=== PATIENT | female | born 1995 | race Caucasian/White ===

== ENCOUNTER → 2016-12-18 | Outpatient (CLI) | payer OTHER ==
[2016-12-18 11:10] LABS: CH 30.1; CHCM 33.9; HCT 30.7 % (34.0-46.0); HDW 3.29; HGB 10.4 gm/dL (11.4-16.0); MCH 30.1 pg (25.0-35.0); MCHC 33.8 g/dL (31.0-37.0); MCV 89.1 fL (80.0-100.0); Mean Platelet Volume 8.4; RBC 3.45 m/uL (3.80-5.40); RDW 12.8 % (11.5-15.5); WBC 9.1 k/uL (3.8-10.6)
== END | disposition home or self-care (01) ==
LOC: LABWHC1 09:20
PROVIDERS: ATTEND Obstetrics & Gynecology
DX: Z34.02 Encounter for supervision of normal first pregnancy, second trimester (principal)
CPT/HCPCS: 36415; 82950; 85027

== ENCOUNTER → 2017-02-08 | Outpatient (CLI) | payer OTHER ==
--- NOTE | 2017-02-08 22:00 | US ---
EXAMINATION TYPE: US OB anatomy transabd DATE OF EXAM: 02/08/2017 3:03 PM COMPARISON: Us on PACS HISTORY: 22-year-old female LGA: TECHNIQUE: Transabdominal (TA) FINDINGS: EXAM MEASUREMENTS: GESTATIONAL AGE / DATING Physician Established: (35 weeks/1 day) EDC: 03/14/2017 Dates by LMP: (unknown) Dates by First Scan: (36 weeks/ 3 days) EDC: 03/05/2017 Dates by Current Scan for: (39 weeks/0 days) EDC: 02/15/2017 SURVEY IUP: Single PLACENTA: Anterior placenta with possible succenturiate lobe fundally on images #22 and 23. PREVIA: No previa JARETH: 16.6 cm Normal CERVICAL LENGTH (transabdominal: norm > 3.0cm): 3.6 cm BIOMETRY PRESENTATION: Breech LIE: Longitudinal BPD: 9.9 cm 40 weeks / 5 days HC: 35.0 cm 40 weeks / 6 days AC: 33.3 cm 37 weeks / 2 days FL: 7.2 cm 37 weeks / 0 days ESTIMATED WEIGHT IN GRAMS: 3342 grams ESTIMATED WEIGHT IN LBS/OZS: 7 lbs. 6 oz. WEIGHT PERCENTAGE BASED ON ESTABLISHED DATE: 98 % (versus 94% on 10/19/2016) HC/AC: 1.05 normal FL/AC: 22% normal HEART RATE: 133 bpm RHYTHM: Normal ANATOMY SEEN (within normal limits): Lateral Vent (< 1 cm) 0.7 cm Choroid Plexus (bilateral) Midline Falx Four Chamber Heart Stomach Situs Nose / Lips Diaphragm Kidneys (bilateral) Bladder Three Vessel Cord ANATOMY NOT SEEN or SUBOPTIMALLY VISUALIZED: due to bone shadowing and crowding Cavus Septi Pellucidi Longitudinal Spine: S Spine not seen Transverse Spine: S Spine not seen Cisterna Magna (< 1.1 cm) Cerebellum (varies with age) Arms (bilateral) Legs (bilateral) Outflow tracts: LVOT/RVOT Cord Insert TECHNOLOGIST NOTES: Single, live, IUP,(39 weeks/0 days), EDC: 02/15/2017; [id number]. Tech called Dr Tere flannery's Office to report patient is measuring 18 days sooner than EDC, although gestation in 3rd trim eladio is allowed + or - 21 days. JJ IMPRESSION: 1. Single live intrauterine with established gestational age of 35 weeks 1 day. Current ult rasound biometry (39 weeks 0 days) is nearly 4 weeks greater than establish dates and nearly 2 weeks 4 days greater than prior dating scan. This places the child at the 98th percentile for weight versus 94% on prior exam. Continued follow-up as indicated. 2. Possible succenturiate lobe of the placenta. 3. The nose/lips are visualized and appear normal.
== END | disposition home or self-care (01) ==
LOC: RADUSWWP 14:08
PROVIDERS: ATTEND Obstetrics & Gynecology
DX: O36.63X0 Maternal care for excessive fetal growth, third trimester, not applicable or unspecified (principal); Z3A.35 35 weeks gestation of pregnancy
CPT/HCPCS: 76811

== ENCOUNTER 2017-03-14 12:23 | Inpatient (IN) | payer OTHER ==
[2017-03-14] MEDS ORDERED: LACTATED RINGERS 1,000 ML IV ONE (12:47)
[2017-03-14] MEDS ORDERED: CITRIC ACID-SODIUM CITRATE 15 ML CUP PO ONE (12:47)
[2017-03-14] MEDS ORDERED: ceFAZolin 2 GM in SODIUM CHLORIDE 0.9% 100 ML IVPB STA (12:49)
[2017-03-14] MEDS ORDERED: LACTATED RINGERS 1,000 ML IV SCH (13:00)
--- NOTE | 2017-03-14 13:32 | P.HPOB ---
History of Present Illness H&P Date: 03/14/17 Chief Complaint: Leaking of fluid and breech This patient is a pleasant 22-year-old 1 para 0 female estimated date of confinement 03/14/2017 estimated gestational age 40 and 0 weeks gestation who presents to labor and delivery with complaints of gush of fluid at 4 AM this morning. Patient's care is per Dr. Winter appears to be complicated by persistent breech presentation. Patient was scheduled for a primary on Wednesday however is now grossly ruptured. Patient did have a positive group B strep culture. Review of Systems Constitutional: Denies chills, Denies fever Eyes: denies blurred vision, denies pain Ears, nose, mouth and throat: Denies headache, Denies sore throat Cardiovascular: Denies chest pain, Denies shortness of breath Respiratory: Denies cough Gastrointestinal: Reports heartburn Genitourinary: Reports Menstruation: Reports amenorrhea Past Medical History Past Medical History: No Reported History History of Any Multi-Drug Resistant Organisms: None Reported Past Surgical History: No Surgical Hx Reported Past Anesthesia/Blood Transfusion Reactions: No Reported Reaction Past Psychological History: No Psychological Hx Reported Smoking Status: Never smoker Past Alcohol Use History: None Reported Past Drug Use History: None Reported - Past Family History Mother Family Medical History: No Reported History Medications and Allergies Home Medications Medication Instructions Recorded Confirmed Type Pnv with Ca,No.72/Iron/FA 1 tab PO DAILY 03/08/17 03/08/17 History [ Plus Tablet] Allergies Allergy/AdvReac Type Severity Reaction Status Date / Time No Known Allergies Allergy Verified 03/08/17 12:01 Exam - Vital Signs Vital signs: Vital Signs Temp Pulse Resp BP Pulse Ox 03/14/17 12:30 97.7 F 97 14 148/89 98 Intake and Output 03/13/17 03/14/17 03/14/17 22:59 06:59 14:59 Other: Weight 86.636 kg Patient Weight 03/15/17 06:59 Weight 86.636 kg - OBG Physical Exam Abdomen: bowel sounds normal, no diffuse tenderness, no bruit present, no guarding noted, no hepatomegaly, no splenomegaly, no mass Vulva: both: normal Vagina: normal moisture, no discharge Cervix: no lesion (Cervix is 1 cm dilated and she is grossly ruptured), no discharge Uterus: enlarged (Fundal height is consistent with a term .) Results blood work shows she is A positive, rubella nonimmune, hepatitis B negative, RPR was non-reactive, group B strep was negative, HIV was nonreactive , Glucola was normal, ultrasounds have been normal with the exception of persistent breech presentation. Assessment and Plan (1) Third trimester Narrative/Plan: This is a pleasant 22-year-old 1 para 0 female 40-0/7 weeks gestation with persistent breech presentation, premature rupture membranes, and history of positive group B strep culture. Plan is antibiotic prophylaxis, and proceed with delivery by section at this time. I did discuss this procedure with the patient and risks including risks of infection, bleeding, possible injury to bowel, bladder, vessels, and/or other organs. All the patient's questions are answered and a written consent is obtained. Status: Acute (2) Premature rupture of membranes Status: Acute (3) Breech presentation Status: Acute (4) Group B streptococcal carriage complicating Status: Acute
[2017-03-14 13:40] LABS: WBC 9.7 k/uL (3.8-10.6); WBC (Perox) 10.55
[2017-03-14 13:41] LABS: CH 26.6; CHCM 32.9; HCT 29.5 % (34.0-46.0); HDW 3.42; HGB 9.6 gm/dL (11.4-16.0); MCH 26.5 pg (25.0-35.0); MCHC 32.7 g/dL (31.0-37.0); MCV 81.1 fL (80.0-100.0); RBC 3.64 m/uL (3.80-5.40); RDW 14.8 % (11.5-15.5)
[2017-03-14 13:42] LABS: Hypochromasia Slight; Mean Platelet Volume 8.9; Poikilocytosis Slight
[2017-03-14 13:43] LABS: Basophils % (A) 0 %; Eosinophils % (A) 0 %; Luc % (Auto) 2; Lymphocytes # (A) 1.9 k/uL (1.0-4.8); Lymphocytes % (A) 19 %; Monocytes % (A) 6 %; Neutrophils # (A) 7.1 k/uL (1.3-7.7); Neutrophils % (A) 73 %
[2017-03-14 13:44] LABS: Monocytes # (A) 0.5 k/uL (0-1.0)
[2017-03-14] MEDS ORDERED: ONDANSETRON 4 MG/2 ML VIAL ONE (14:00)
[2017-03-14] MEDS ORDERED: ePHEDrine 50 MG/ML 1 ML AMP ONE (14:00)
[2017-03-14] MEDS ORDERED: LACTATED RINGERS 1,000 ML BAG IV ONE (14:00)
[2017-03-14] MEDS ORDERED: KETOROLAC 30 MG/ML 1 ML VIAL ONE (14:00)
[2017-03-14] MEDS ORDERED: MORPHINE SULFATE (PF) 0.3 MG/0.3 ML SYR ONE (14:00)
[2017-03-14] MEDS ORDERED: NALBUPHINE 10 MG/ML AMPUL ONE (14:00)
[2017-03-14] MEDS ORDERED: OXYTOCIN 10 UNIT/ML 1 ML VIAL IM ONE (14:00)
[2017-03-14] MEDS ORDERED: MORPHINE SULFATE 4 MG/ML SYRINGE IVP PRN ×2 (14:23→16:41)
[2017-03-14] MEDS ORDERED: ONDANSETRON 4 MG/2 ML VIAL IVP PRN ×2 (14:23→14:45)
[2017-03-14] MEDS ORDERED: diphenhydrAMINE 50 MG/ML 1 ML VIAL IVP PRN ×2 (14:23→14:45)
[2017-03-14] MEDS ORDERED: NALOXONE 0.4 MG/ML 1 ML VIAL IV PRN ×2 (14:23→14:45)
[2017-03-14] MEDS ORDERED: MEASLES-MUMPS-RUBELLA VACC/PF 12,500 UNIT/0.5 ML VIAL SQ ONE (14:45)
[2017-03-14] MEDS ORDERED: Acetaminophen-Codeine 300-30mg TAB PO PRN (14:45)
[2017-03-14] MEDS ORDERED: METOCLOPRAMIDE 5 MG/ML 2 ML VIAL IVP PRN (14:45)
[2017-03-14] MEDS ORDERED: SIMETHICONE 80 MG CHEWABLE PO PRN (14:45)
[2017-03-14] MEDS ORDERED: ZOLPIDEM 5 MG TAB PO PRN (14:45)
[2017-03-14] MEDS ORDERED: LANOLIN CREAM 5 GM TUBE TOPICAL PRN (14:45)
[2017-03-14] MEDS ORDERED: ACETAMINOPHEN TAB 325 MG TAB PO PRN (14:45)
[2017-03-14] MEDS ORDERED: diphenhydrAMINE 25 MG CAP PO PRN (14:45)
[2017-03-14] MEDS ORDERED: OXYTOCIN 30 UNITS/500 ML NS 30 UNIT in SALINE 1 500ML.BAG IV SCH (14:45)
--- NOTE | 2017-03-14 14:47 | P.OP ---
Date of Procedure: 03/14/17 Preoperative Diagnosis: #1: 40-0/7 weeks . #2: Premature rupture membranes. #3: Persistent breech presentation. #4: Positive group B strep culture Postoperative Diagnosis: Same Procedure(s) Performed: Primary low transverse section Anesthesia: spinal Surgeon: Pratik Lucas Design Intern #1: Adriana Ross Estimated Blood Loss (ml): 800 Pathology: other Condition: stable (Placenta) Disposition: floor Indications for Procedure: Please see dictated H&P for intimate details of this patient's admission. Brief summary this is a pleasant 22-year-old 1 para 0 female 40-0/7 weeks gestation who is admitted to labor and delivery with complaints of gush of fluid at 4 AM this morning. Patient presented to labor and delivery around noon today. Ultrasound confirms persistent breech. Patient understands is best to proceed with section for delivery at this time. Patient does understand the surgery and risks including risks of infection, bleeding, possible injury bowel, bladder, vessels, and other organs. Patient understands risk of DVT and pulmonary embolism. All the patient's questions are answered and a written consent is obtained. Operative Findings: This is a vigorous viable male infant Apgars 9 and 9 delivery time is 1416 hrs. was sacrum anterior vishnu breech presentation. Description of Procedure: Patient has a Fish catheter placed to straight drain. She is subsequently taken to the operating room where she sat up and spinal anesthetic is administered without incident. With an adequate level of anesthesia she has abdominal prep and drape. Scalpels and taken Pfannenstiel skin incision is then made. A second scalpel is taken down the fascia the fascia scored with scalpel. Fascial incision is extended bilaterally using the Castanon scissors. Fascia is dissected off the rectus muscles sharply. Rectus muscles are the peritoneum was identified and entered sharply. Peritoneal incision extended superior and inferior without difficulty. Bladder blade is placed at this time in the bladder peritoneum was taken sharply off the lower uterine segment. Scalpels and taken a low transverse uterine incision is made. Using a hemostat I enter the uterine cavity bluntly. There is a scant amount of clear fluid. This incision extended bluntly. Infant is found to be in the vishnu breech sacrum anterior presentation. Using the usual breech maneuvers this is delivered. This is a vigorous viable male Apgars are 9 and 9 delivery time is 1416 hrs. After delivery of the infant the umbilical cord is doubly clamped and cut. It appears to be trivascular. The placenta is then manually extracted intact. Uterus is then externalized and uterine incision demarcated with Ramirez clamps. Incision is then closed using 0 Vicryl running locked fashion 2 layers. Excellent hemostasis is noted. With this done the bladder peritoneum is closed using a 3-0 Vicryl in a running fashion. Excess fluid is removed from the abdomen and pelvis. The uterus tubes and ovaries appear normal for term gestation. Uterus placed back into the abdomen. Parietal peritoneum was then identified and closed using 0 Vicryl running fashion. Rectus muscles reapproximated in 0 Vicryl interrupted fashion. Fascia is then closed using 0 PDS. Fascial incision is intact and hemostatic. Subcutaneous tissues and closed using a 3-0 Vicryl. Skin is and closed using oswaldo. All counts are correct 3. There are no complications. Infant and mother are taken together birthing suite in satisfactory condition.
[2017-03-14 14:50] VITALS: BMI 34.9
--- NOTE | 2017-03-14 14:52 | P.MSEPDOC ---
Presenting Problems - Arrival Data Date of Arrival on Unit: 03/14/17 Time of Arrival on Unit: 12:20 Mode of Transport: Ambulatory - Complaint OB-Reason for Admission/Chief Complaint: Rule Out SROM Comment: SROM 0400, clear Medical History - Information : 1 Para: 0 Term: 0 : 0 Abortions: Spontaneous or Elective: 0 Number of Living Children: 0 - Gestational Age Expected Date of Delivery: 03/14/17 Gestational Age by TIARA (wks/days): 40 Weeks and 0 Days - History Complications: Breech Review of Systems - Review of Systems Constitutional: No problems Breast: No problems ENT: No problems Cardiovascular: No problems Respiratory: No problems Gastrointestinal: No problems Genitourinary: No problems Musculoskeletal: No problems Neurological: No problems Skin: No problems Vital Signs - Temperature Temperature: 97.7 F Temperature Source: Temporal Artery Scan - Pulse Right Sitting Brachial Pulse Rate: 97 Pulse Assessment Method: Automatic Cuff - Respirations Respiratory Rate: 14 Oxygen Delivery Method: Room Air O2 Sat by Pulse Oximetry: 98 - Blood Pressure Right Arm Sitting Blood Pressure: 148/89 Blood Pressure Mean: 108 Blood Pressure Source: Automatic Cuff Medical Screen Scoring (Pre) - Cervical Exam Dilation: 1-3 cm = 1 Membranes: Ruptured = 3 - Uterine Contractions Frequency: N/A Duration: N/A Intensity: N/A - Maternal Vital Signs Maternal Temperature: N/A Maternal Blood Pressure: N/A Signs of Preeclampsia: N/A Maternal Respirations: N/A - Maternal Trauma Maternal Trauma: N/A - Assessment Baseline FHR: 140 Heart Rate - NICHD Category: Category I (Normal) = 0 NST: Reactive Position: N/A Station: N/A - Total Score Total Score (Pre): 4 - Level of Risk Level of Risk: Low (0-5) Physician Notification (Post) - Physician Notified Physician Notified Date: 03/14/17 Physician Notified Time: 12:45 Physician/Practitioner Notified:: Dr Lucas Spoke With: Dr Lucas New Order Received: Yes - Notification Comment Comment: admit & prep for section. Disposition - Disposition OB Disposition: Admit, LDRP Suite Discharge Date: 03/14/17 Discharge Time: 12:59 I agree with the RN Medical Screening Exam: Yes Risk & Benefit of care provided described in d/c instruction: Yes Diagnosis: MATERNAL CARE FOR BREECH PRESENTATION, FETUS 1
[2017-03-14] MEDS: LACTATED RINGERS 1,000 ML IV SCH ×2 (17:25→23:00)
[2017-03-14] MEDS: ceFAZolin 2 GM in SODIUM CHLORIDE 0.9% 100 ML IVPB SCH (20:30)
[2017-03-14] MEDS: KETOROLAC 30 MG/ML 1 ML VIAL IVP PRN (20:30)
[2017-03-14] MEDS: SENNOSIDES-DOCUSATE SODIUM 1 EACH TAB PO SCH (20:31)
[2017-03-15] MEDS: ceFAZolin 2 GM in SODIUM CHLORIDE 0.9% 100 ML IVPB SCH (03:59)
[2017-03-15] MEDS: LACTATED RINGERS 1,000 ML IV SCH (04:00)
[2017-03-15] MEDS: KETOROLAC 30 MG/ML 1 ML VIAL IVP PRN (05:19)
[2017-03-15 09:29] LABS: Basophils % (A) 0 %; CHCM 31.5; Eosinophils % (A) 0 %; HCT 26.9 % (34.0-46.0); HDW 3.17; HGB 8.3 gm/dL (11.4-16.0); Hypochromasia Moderate; Luc # (Auto) 0.14; Luc % (Auto) 1; Lymphocytes # (A) 1.9 k/uL (1.0-4.8); Lymphocytes % (A) 17 %; MCH 25.5 pg (25.0-35.0); MCHC 30.8 g/dL (31.0-37.0); MCV 82.9 fL (80.0-100.0); Monocytes # (A) 0.6 k/uL (0-1.0); Monocytes % (A) 5 %; Neutrophils # (A) 8.4 k/uL (1.3-7.7); Neutrophils % (A) 76 %; RBC 3.24 m/uL (3.80-5.40); RDW 15.3 % (11.5-15.5); WBC (Perox) 11.49
[2017-03-15] MEDS: SENNOSIDES-DOCUSATE SODIUM 1 EACH TAB PO SCH ×2 (09:35→23:32)
--- NOTE | 2017-03-15 13:08 | P.PN ---
Progress Note - Text Date: 03/15/2017 Time: 07:07 The patient is status post section Vital signs stable VAS: 0-10 Patient has no complaints of pain. The patient incurred some minimal itching yesterday, this itching is now subsiding. Pain meds to be managed by service.
[2017-03-15] MEDS: Acetaminophen-Codeine 300-30mg TAB PO PRN (16:19)
[2017-03-15] MEDS: IBUPROFEN 600 MG TAB PO PRN (20:20)
[2017-03-16] MEDS: Acetaminophen-Codeine 300-30mg TAB PO PRN (00:30)
[2017-03-16 00:52] VITALS: RESP 16
[2017-03-16] MEDS: IBUPROFEN 600 MG TAB PO PRN (07:41)
--- NOTE | 2017-03-16 08:12 | P.PNOBGPC ---
Subjective - Subjective Principal diagnosis: Status post primary low transverse postoperative day #1 Interval history: Patient seen and examined. Denies nausea, vomiting, fever, chills, chest pain, shortness of breath or calf pain. Patient reports: Reports appetite normal, Reports voiding normally, Reports pain well controlled, Reports ambulating normally : doing well Objective - Vital Signs Latest vital signs: Vital Signs Temp Pulse Resp BP Pulse Ox 03/16/17 00:00 98.5 F 92 16 120/62 98 03/15/17 16:00 98.2 F 99 17 122/74 03/15/17 12:00 98.5 F 102 H 19 125/60 Intake and Output 03/15/17 03/16/17 03/16/17 22:59 06:59 14:59 Other: # Voids 1 - Exam Lungs: bilateral: normal Chest: Normal S1, Normal S2 Extremities: Present: normal Abdomen: Present: normal appearance, soft. Absent: distention, tenderness Incision: Present: normal, dry, intact Uterus: Present: normal, firm - Labs Labs: Abnormal Lab Results - Last 24 Hours (Table) 03/15/17 Range/Units 09:14 WBC 11.0 H (3.8-10.6) k/uL RBC 3.24 L (3.80-5.40) m/uL Hgb 8.3 L (11.4-16.0) gm/dL Hct 26.9 L (34.0-46.0) % MCHC 30.8 L (31.0-37.0) g/dL Neutrophils # 8.4 H (1.3-7.7) k/uL Assessment and Plan (1) Status post primary low transverse section Narrative/Plan: 1. Increase ambulation 2. Continue pain control Current Visit: Yes Status: Acute Code(s): Z98.891 - HISTORY OF UTERINE SCAR FROM PREVIOUS SURGERY SNOMED Code(s): 158357914
--- NOTE | 2017-03-16 08:16 | P.DS ---
Providers Date of admission: 03/14/17 12:50 Expected date of discharge: 03/16/17 Attending physician: Pratik Lucas Primary care physician: Fernanda Winter - Discharge Diagnosis(es) (1) Status post primary low transverse section Current Visit: Yes Status: Acute Hospital Course: Patient presented with spontaneous rupture membranes at 40 weeks gestation. The baby was in breech presentation and she underwent a primary low transverse C -section. Her postoperative course was uncomplicated. She denies nausea, vomiting, fever, chills, chest pain, shortness of breath or calf pain. Her incision is clean, dry, intact. Her pain is well-controlled. She is tolerating regular diet and passing flatus. She'll be discharged home postoperative day #2 in stable condition to follow-up with me in one week. Plan - Discharge Summary New Discharge Prescriptions: Acetaminophen-Codeine 300-30mg [Tylenol w/codeine #3] 2 each PO Q4HR PRN #30 tab PRN Reason: Moderate To Severe Pain Ibuprofen [Motrin] 600 mg PO Q6HR PRN #30 tab PRN Reason: Mild Pain Or Fever >= 100.5 Discharge Medication List Pnv with Ca,No.72/Iron/FA [ Plus Tablet] 1 tab PO DAILY 03/08/17 [ History] Acetaminophen-Codeine 300-30mg [Tylenol w/codeine #3] 2 each PO Q4HR PRN #30 tab 03/16/17 [Rx] Ibuprofen [Motrin] 600 mg PO Q6HR PRN #30 tab 03/16/17 [Rx] Follow up Appointment(s)/Referral(s): Fernanda Winter DO [Primary Care Provider] - 1 Week Discharge Disposition: HOME SELF-CARE
[2017-03-16] MEDS: SENNOSIDES-DOCUSATE SODIUM 1 EACH TAB PO SCH (08:24)
[2017-03-16 08:29] VITALS: BP 119/67; PULSE 83; TEMP 98
== END 2017-03-16 12:00 | disposition home or self-care (01) | DRG 766 ==
LOC: FBPOP 12:23 → 4FBP 12:50
PROVIDERS: ADMIT Obstetrics & Gynecology; ATTEND Obstetrics & Gynecology
PROC: 3E0S3NZ Introduction of Analgesics, Hypnotics, Sedatives into Epidural Space, Percutaneous Approach (ICD-10-PCS; 2017-03-14)
PROC: 10D00Z1 Extraction of Products of Conception, Low, Open Approach (ICD-10-PCS; principal; 2017-03-14 14:00)
DX: O32.1XX0 Maternal care for breech presentation, not applicable or unspecified (principal); O99.824 Streptococcus B carrier state complicating childbirth; O42.92 Full-term premature rupture of membranes, unspecified as to length of time between rupture and onset of labor; Z3A.40 40 weeks gestation of pregnancy; Z37.0 Single live birth
CPT/HCPCS: 59025; 84112; 85025; 86850; 86900; 86901; 88307; 99213

== ENCOUNTER → 2018-01-19 | Outpatient (CLI) | payer OTHER ==
--- NOTE | 2018-01-19 09:48 | USB ---
Reason for exam: clinical finding. Indicated problem(s): pain in the right breast. Physical Findings: Nurse did not find any significant physical abnormalities on exam. US Breast BILAT Right breast ultrasound includes all four quadrants, the retroareolar region and axilla. Finding demonstrates no cystic or solid lesion seen. Left breast ultrasound includes all four quadrants, the retroareolar region and axilla. Finding demonstrates no cystic or solid lesion seen. These results were verbally communicated with the patient and result sheet given to the patient on 01/19/18. ASSESSMENT: Negative, BI-RAD 1 RECOMMENDATION: Routine screening mammogram of both breasts at age 39. Manage patient on a clinical basis.
== END | disposition home or self-care (01) ==
LOC: RADUSWWP 08:48
PROVIDERS: ATTEND Obstetrics & Gynecology
DX: N64.4 Mastodynia (principal)

== ENCOUNTER 2018-05-04 21:18 | Emergency (ER) | payer OTHER ==
[2018-05-04 21:33] VITALS: BP 126/79; PULSE 61; RESP 18; TEMP 99.2
--- NOTE | 2018-05-04 22:13 | ED ---
Abdominal Pain HPI - General Chief Complaint: Abdominal Pain Stated Complaint: back and abdominal pain Time Seen by Provider: 05/04/18 21:37 Source: patient Mode of arrival: ambulatory Limitations: no limitations - History of Present Illness Initial Comments: This patient is a 23-year-old woman who presents to be a viral for left flank pain that is been going on for 3 days now. The patient states that she felt she had a couple of days of preceding urinary type symptoms, including frequency mild dysuria. She states that she felt she had a little bit of a bladder infection. The patient indicates that the flank pain is dull, mild to moderate, constant, and she has not noted any worsening or relieving factors. She spoke with her cousin who is a nurse and was convinced to be evaluated in the emergency department. MD Complaint: flank pain Onset/Timin -: days(s) Location: L flank Radiation: none Severity: moderate Quality: dull Consistency: constant Improves With: nothing Worsens With: nothing Associated Symptoms: denies other symptoms - Related Data LMP (females 10-50): 1 month Patient : No Previous Rx's Medication Instructions Recorded Ciprofloxacin HCl [Cipro] 500 mg PO Q12HR #14 tablet 05/04/18 Allergies Allergy/AdvReac Type Severity Reaction Status Date / Time No Known Allergies Allergy Verified 05/04/18 21:46 Review of Systems ROS Statement: Those systems with pertinent positive or pertinent negative responses have been documented in the HPI. ROS Other: All systems not noted in ROS Statement are negative. Constitutional: Denies: fever, chills Respiratory: Denies: cough, dyspnea Cardiovascular: Denies: chest pain, palpitations Gastrointestinal: Reports: as per HPI, abdominal pain. Denies: nausea, vomiting , diarrhea, constipation Genitourinary: Reports: dysuria, frequency. Denies: hematuria, discharge, abnormal menses Skin: Denies: rash, lesions Neurological: Denies: headache, weakness Past Medical History Past Medical History: No Reported History History of Any Multi-Drug Resistant Organisms: None Reported Past Surgical History: Section Past Anesthesia/Blood Transfusion Reactions: No Reported Reaction Past Psychological History: No Psychological Hx Reported Smoking Status: Never smoker Past Alcohol Use History: Rare Past Drug Use History: None Reported - Past Family History Mother Family Medical History: No Reported History General Exam Limitations: no limitations General appearance: alert, in no apparent distress Head exam: Present: atraumatic, normocephalic ENT exam: Present: normal oropharynx Respiratory exam: Present: normal lung sounds bilaterally. Absent: respiratory distress, wheezes, rales, rhonchi, stridor Cardiovascular Exam: Present: regular rate, normal rhythm, normal heart sounds. Absent: systolic murmur, diastolic murmur, rubs, gallop GI/Abdominal exam: Present: soft. Absent: distended, tenderness, guarding, rebound, rigid, mass, pulsatile mass, hernia Extremities exam: Present: normal inspection, normal capillary refill. Absent: pedal edema, calf tenderness Back exam: Present: normal inspection. Absent: CVA tenderness (R), CVA tenderness (L) Neurological exam: Present: alert Skin exam: Present: warm, dry, intact, normal color. Absent: rash Course Vital Signs 05/04/18 21:30 Temperature 99.2 F Pulse Rate 61 Respiratory 18 Rate Blood Pressure 126/79 O2 Sat by Pulse 99 Oximetry Medical Decision Making - Medical Decision Making Patient is 23-year-old woman presenting with symptoms similar to previous urinary tract infection area her urinalysis does show white blood cells in the urine. Patient will be started on antibiotics here. We discussed appropriate further care and follow-up as well as return parameters. - Lab Data Lab Results 05/04/18 05/04/18 Range/Units 22:05 22:05 Urine Color Light Yellow Urine Appearance Cloudy H (Clear) Urine pH 6.5 (5.0-8.0) Ur Specific [place] 1.013 (1.001-1.035) Urine Protein 1+ H (Negative) Urine Glucose (UA) Negative (Negative) Urine Ketones Negative (Negative) Urine Blood Trace H (Negative) Urine Nitrite Negative (Negative) Urine Bilirubin Negative (Negative) Urine Urobilinogen <2.0 (<2.0) mg/dL Ur Leukocyte Esterase Large H (Negative) Urine RBC 3 (0-5) /hpf Urine WBC 93 H (0-5) /hpf Urine WBC Clumps Occasional H (None) /hpf Ur Squamous Epith Cells 2 (0-4) /hpf Urine HCG, Qual Not Detected (Not Detectd) Disposition Clinical Impression: Urinary tract infection Disposition: HOME SELF-CARE Condition: Good Instructions: Urinary Tract Infection in Women (ED) Prescriptions: Ciprofloxacin HCl [Cipro] 500 mg PO Q12HR #14 tablet Is patient prescribed a controlled substance at d/c from ED?: No Referrals: Audie Schulz Jr, DO [Primary Care Provider] - 1-2 days
[2018-05-04 22:19] LABS: Appearance,Urine Cloudy (Clear); Bilirubin,Urine Negative (Negative); Blood,Urine Trace (Negative); Color,Urine Light Yellow; Glucose,Urine (UA) Negative (Negative); Ketones,Urine Negative (Negative); Leukocyte Esterase,Urine Large (Negative); Nitrite,Urine Negative (Negative); PH, Urine 6.5 (5.0-8.0); Protein,Urine 1+ (Negative); RBC,Urine 3 /hpf (0-5); Specific Gravity,Urine 1.013 (1.001-1.035); Squamous Epithelial Cell,Urine 2 /hpf (0-4); Urobilinogen,Urine <2.0 mg/dL (<2.0); WBC,Urine 93 /hpf (0-5)
[2018-05-04] MEDS ORDERED: LEVOFLOXACIN 750 MG TAB PO STA (22:48)
== END 2018-05-04 23:02 | disposition home or self-care (01) ==
LOC: EC 21:18
DX: N39.0 Urinary tract infection, site not specified (principal); R10.9 Unspecified abdominal pain
CPT/HCPCS: 81001; 81025; 99284